=== PATIENT | female | born 1950 | race Caucasian/White ===

== ENCOUNTER 2021-10-29 07:30 | Day surgery (SDC) | payer OTHER ==
[2021-10-24 11:16] LABS: SARS-CoV-2 Antigen Rapid Res Negative (Negative)
[2021-10-29] MEDS ORDERED: Ringers Lactate 1,000 ML IV ONE (07:53)
[2021-10-29] MEDS ORDERED: LIDOCAINE 1% W/EPI 1:100,000 MDV 50 ML VIAL ONE (08:03)
[2021-10-29] MEDS ORDERED: SCOPOLAMINE HYDROBROMIDE PATCH TD ONE (08:10)
[2021-10-29] MEDS ORDERED: propofoL 200 MG/20 ML VIAL IV ONE (08:11)
[2021-10-29] MEDS ORDERED: LIDOCAINE 2% MPF 5 ML VIAL ONE (08:12)
[2021-10-29] MEDS ORDERED: MIDAZOLAM HCL 2 MG/2 ML INJ ONE (08:12)
[2021-10-29] MEDS ORDERED: dexAMETHasone 10 MG/ML VIAL ONE (08:12)
[2021-10-29] MEDS ORDERED: ROCURONIUM 50 MG/5 ML VIAL IV ONE (08:12)
[2021-10-29] MEDS ORDERED: FENTANYL CITR 100 MCG/2 ML ONE (08:12)
[2021-10-29] MEDS ORDERED: ONDANSETRON 4 MG/2 ML VIAL ONE (08:14)
[2021-10-29] MEDS: CEFAZOLIN 2 GM IN 0.9% NACL 2 GM/100 ML BAG ONE ×2 (08:20→09:09)
[2021-10-29] MEDS: BUPIVACAINE 0.25% PF 10 ML VIAL ONE ×2 (09:17→09:27)
[2021-10-29] MEDS ORDERED: EPHEDRINE SULF 50 MG/ML VIAL ONE (09:18)
--- NOTE | 2021-10-29 10:15 | RAD REPORT ---
EXAM DESCRIPTION: RAD - Fluoroscopy <1 Hour - 10/29/2021 10:07 am FINDINGS: Sacral neural modulation procedure was performed. Fluoro time was 0.71 minutes. Images were reviewed and showed placement of the stimulator wire. No unexpected finding. Due to technical issues, the 2 portable C-arm views could not be scanned into the PACs system.
[2021-10-29] MEDS ORDERED: KETOROLAC 30 MG/ML INJ ONE (10:16)
[2021-10-29] MEDS ORDERED: PROMETHAZINE INJ 25 MG/ML AMP IV PRN (10:40)
[2021-10-29] MEDS ORDERED: HYDROCODONE/APAP 5/325 MG TAB PO PRN (10:40)
--- NOTE | 2021-10-29 10:45 | P.BOP ---
Preoperative diagnosis: refractory OAB Postoperative diagnosis: same, Primary procedure: Interstim Stage 1 Business Planning Analyst: NONE,NONE (rt buttock suspected shingles) Estimated blood loss: min Specimen: none Findings: optimal position, all leads responsive, L lat sacral margin,same side exit Anesthesia: General Complications: None (GETA) Implants: lead wire Interstim quadripolar tined lead Transferred to: Recovery Room Condition: Good
[2021-10-29 11:54] VITALS: BP 143/74; TEMP 96.7; O2SAT 99
[2021-10-29] MEDS ORDERED: MELATONIN 3 MG TABLET PO SCH (21:00)
[2021-10-29] MEDS ORDERED: ATORVASTATIN 40 MG TAB PO SCH (21:00)
[2021-10-30] MEDS ORDERED: LEVOTHYROXINE SOD 0.125 MG TAB PO SCH (06:00)
[2021-10-30] MEDS ORDERED: MAGNESIUM OXIDE 200 MG PO SCH (08:00)
[2021-10-30] MEDS ORDERED: HOME MED 1 EA UNK (Cartilage/Collagen/Bor/Hyalur [Joint Health Tablet] Tablet) PO SCH (09:00)
[2021-10-30] MEDS ORDERED: HOME MED 1 EA UNK (L.Acidoph,Paracasei, B.Lactis [Probiotic] Capsule) PO SCH (09:00)
[2021-10-30] MEDS ORDERED: SERTRALINE HCL 100 MG TAB PO SCH (09:00)
[2021-10-30] MEDS ORDERED: HOME MED 1 EA UNK (Multivitamin [Multivitamin] Tablet) PO SCH (09:00)
[2021-10-30] MEDS ORDERED: VITAMIN D 5,000 UNIT CAP PO SCH (09:00)
--- NOTE | 2021-10-30 14:52 | OP ---
Date of Procedure: 10/29/2021 Surgeon: Lakia Sol MD Tax Compliance Officer: None. Preoperative Diagnosis: Refractory overactive bladder. Postoperative Diagnosis: Refractory overactive bladder. Procedure Performed: InterStim stage I with fluoroscopic guidance of quadripolar lead placement and attachment to the external battery. Secondary Diagnosis: Right buttock suspected shingles. Specimens: No specimens. Complications: No complications. Drains: No drains. Anesthesia: General endotracheal. Implants: Lead 1 InterStim quadripolar tined lead placement and creation of pocket on the left buttock itself for future battery. Findings: Optimal position of lead by placement on fluoroscopy on the AP and lateral views. All leads were responsive. Left lateral sacral margin was used for lead insertion at S3. On the right buttock, there was an area of a rash suspicious for shingles. However, patient denies any prior history of shingles or any symptoms of inner pain or itching or irritation at this site. It was covered with tegaderm after prep in it's own area separate from the prep on of the procedure site. Indications: Patient is a 71-year-old female with refractory overactive bladder. She has been treated with first and second line therapy and has failed to respond. Second-line treatment with mirabegron was not effective and she did not tolerate the anticholinergic. We discussed about the benefits and risks of Botox injection as well as the InterStim therapy. The patient wanted to proceed with InterStim therapy as the long-term solution and that she has no voiding dysfunction. She may also have some MEG for which she will be treated later, so after discussing all the events stage I and stage II were discussed with the patient, she consented for stage I and she has a 1-week followup. Voiding log was done before preop then and 1 will be done postop to see the efficacy before the long- term battery is implanted. Description Of Procedure: After informed consent was verified, she was taken back to the OR. 2 g of Ancef was given. SCDs were placed. General endotracheal anesthesia was given. She was placed in a prone position exposing the buttocks as well as the feet to visualize the response to stim. She was propped up on a pillow in the pelvic area and then legs propped up as well to leave the toes free. After prepping and draping and covering the area of the rash, Ioban was placed. A dressing was placed on the top. Then, 9 cm was measured up from the coccyx in the midline. A hemostat was placed in the midline and 2 cm lateral to the midline and the moscoso were made and this would be probably the S3 foramen, so 2 moscoso were made 2 cm above this and 2 cm further above spine in the lateral sacral margin. With the help of hemostat under fluoro, the S3 foramen was identified and the tip was marked. Then, 2 cm above this, initial needle with guide was used and found S3 foramen and placed the needle into the foramen. This was confirmed in AP and lateral views. However, the angle of the needle was not perpendicular to the spine and was slightly flatter and on stimulation, there was not significant dorsiflexion of the toe. So, the second needle was taken and it was placed in a parallel fashion slightly medial to the previous lead and passed to the S3 foramen. Once this was done and confirmed with fluoro, tested this and there were good natividad on all 4 tined leads both natividad and dorsiflexion. So, there was a good S3 response. The initial needle was removed. This was confirmed to be past the bony plate. So, the inner guide was removed. Then, the flexible guide was passed through the needle. The needle was removed and the plastic dilator and sheath were passed on top after making the incision at this level slightly larger with an 11 blade. Then, once the dilator was passed with a marker under fluoro just past half the way to the bony table, the tip of the plastic dilator was slightly below the level of the anterior border here. Once the inner sheath was removed, there was blood through the outer sheath. So, the inner sheath was fixed back in place while the guide was still in place and then the entire thing was pulled back slightly away from the bleeding vessel and the plastic obturator was left in place and once I waited at least 30-60 seconds. The bleeding had stopped and once the 90 degree turn was done, the inner sheath was pulled out. The lead wire was also removed. The tined lead was taken and with the tip angled towards the feet in the right lateral position, this was extended, however, it was not turning the right direction, so went on to adjust the direction and place it. Once there was excellent position, the fourth lizz just touching the anterior margin of the sacrum. Then, this was tested. All 4 leads had good response of natividad and toes. Then, the inner guidewire was removed along with the tined lead that was released from the distal clip. The entire system along with the sheath were pulled out after the lead was stabilized. AP and lateral views were taken again and it was still in place and after pulling the plastic sheath out, this was left in place and the incision was placed on the same side, 2 cm inferior to the iliac crest slightly medial. 1 inch incision was made on the skin after injecting lidocaine and the plastic sheath with a dilator was passed from the midline incision into the outer incision and the pin was removed and the lead wire was passed through the plastic sheath. Once this came out from the other end, the plastic sheath was pulled out, which is like a tunnel. Then, the lead wire was made sure that there was no knuckle and was flat enough and once this was done, then made another tunnel from the battery side to the right buttock slightly above the level of the battery placement and the wire placement and at least 1 cm incision was made. This was pulled out through here. This tunneler was loaded with the capsule that would fit the lead wire with the support of the lead and once this was fixed in place and was pulled out through the battery incision, it was released from the tunneler and then the lead wire was placed all the way until all the [address] and the hex wrench was used to do a quick turns to tighten it appropriately. Then, a knuckle of the wire was tied with silk to prevent it from being pulled and this was buried into the pocket made for the future battery at least 3/4 inch deep from the skin and the wire was coiled and left in place. Then, 3-0 chromic was used in the subcutaneous area to close this layer deep inside with single interrupted stitch and then 4-0 Monocryl in a subcuticular fashion to close this incision. Then, same 4 interrupted 4-0 Monocryl for other incisions as well. Dermabond was used. Ioban dressing was removed. Patient recovered from anesthesia. EBL was minimal. She was taken to the PACU in stable condition. She will be programmed later when she is more awake and the settings will be entered into the office record. MONY Voice ID: [id number] Report ID: [id number]
== END 2021-10-29 11:45 | disposition home or self-care (01) ==
LOC: OR 07:30
PROVIDERS: ATTEND Obstetrics & Gynecology
PROC: 0JH70BZ Insertion of Single Array Stimulator Generator into Back Subcutaneous Tissue and Fascia, Open Approach (ICD-10-PCS; principal; 2021-10-29 08:30)
DX: N39.3 Stress incontinence (female) (male) (principal); N32.81 Overactive bladder; E03.9 Hypothyroidism, unspecified; Z20.822 Contact with and (suspected) exposure to COVID-19
CPT/HCPCS: 64590; 64581; 36415; 87811; J2704; J2001; J2250; J3010; J1100; J0690; J7120; J2405; 76000

== ENCOUNTER 2021-11-05 08:28 | Day surgery (SDC) | payer OTHER ==
[~2021-11-05 08:28] MED LIST: CEFAZOLIN 2 GM in NA CHLORIDE 0.9% 100 ML IVPB SCH; Ringers Lactate 1,000 ML IV SCH
[2021-11-05] MEDS ORDERED: CEFAZOLIN 2 GM IN 0.9% NACL 2 GM/100 ML BAG ONE (08:32)
[2021-11-05] MEDS ORDERED: Ringers Lactate 1,000 ML IV ONE (08:32)
[2021-11-05 09:08] LABS: SARS-CoV-2 Antigen Rapid Res Negative (Negative)
[2021-11-05] MEDS ORDERED: LIDOCAINE 1% W/EPI 1:100,000 10 ML VIAL ONE (10:36)
[2021-11-05] MEDS ORDERED: propofoL 200 MG/20 ML VIAL IV ONE ×5 (10:41→12:03)
[2021-11-05] MEDS ORDERED: MIDAZOLAM HCL 2 MG/2 ML INJ ONE (10:42)
[2021-11-05] MEDS ORDERED: FENTANYL CITR 100 MCG/2 ML ONE (10:42)
[2021-11-05] MEDS ORDERED: LIDOCAINE 2% MPF 5 ML VIAL ONE (10:44)
[2021-11-05] MEDS ORDERED: IBUPROFEN 200 MG TAB PO PRN (12:17)
[2021-11-05] MEDS ORDERED: PROMETHAZINE INJ 25 MG/ML AMP IV PRN (12:17)
--- NOTE | 2021-11-05 12:22 | P.BOP ---
Preoperative diagnosis: refractory OAB, MEG (s/p sling) Postoperative diagnosis: same Primary procedure: stage 2 Interstim, Cystoscopy urethral bulking with 1.5ml Bulkamid Estimated blood loss: min Specimen: none Findings: impedence chk passed,lead under the battery:L buttock, 2 layer closure Anesthesia: MAC Complications: None Implants: Battery 10yr non rechargeable Transferred to: Recovery Room Condition: Good
[2021-11-05 12:38] VITALS: O2SAT 100
[2021-11-05 13:57] VITALS: BP 155/81; TEMP 97.7
[2021-11-05] MEDS ORDERED: ATORVASTATIN 40 MG TAB PO SCH (21:00)
[2021-11-05] MEDS ORDERED: MELATONIN 3 MG TABLET PO SCH (21:00)
[2021-11-06] MEDS ORDERED: LEVOTHYROXINE SOD 0.125 MG TAB PO SCH (06:00)
[2021-11-06] MEDS ORDERED: MAGNESIUM OXIDE 200 MG PO SCH (08:00)
[2021-11-06] MEDS ORDERED: HOME MED 1 EA UNK (L.Acidoph,Paracasei, B.Lactis [Probiotic] Capsule) PO SCH (09:00)
[2021-11-06] MEDS ORDERED: HOME MED 1 EA UNK (Multivitamin [Multivitamin] Tablet) PO SCH (09:00)
[2021-11-06] MEDS ORDERED: SERTRALINE HCL 100 MG TAB PO SCH (09:00)
[2021-11-06] MEDS ORDERED: HOME MED 1 EA UNK (Cartilage/Collagen/Bor/Hyalur [Joint Health Tablet] Tablet) PO SCH (09:00)
[2021-11-06] MEDS ORDERED: VITAMIN D 5,000 UNIT CAP PO SCH (09:00)
--- NOTE | 2021-11-06 18:10 | OP ---
Date of Procedure: 11/05/2021 Surgeon: Lakia Sol MD Quality Assurance Specialist: No child and youth program assistant. Preoperative Diagnoses: Refractory overactive bladder; stress urinary incontinence, which is recurre nt after the sling that was done 10 years ago. Postoperative Diagnoses: Refractory overactive bladder; stress urinary incontinence, which is recurr ent after the sling that was done 10 years ago. Procedures Performed: 1.Stage II InterStim (removal of the temporary battery connections, implantation of the permanent ba ttery that is nonrechargeable, programming of the device). 2.Cystoscopy with urethral bulking using 1.5 mL of Bulkamid. Anesthesia: MAC. Condition: Stable. Complications/drains: No complications or drains. Implants: Battery that is a nonrechargeable InterStim untapttronic battery. Findings: Impedance check was done and passed. The lead was coiled under the battery and placed in the left buttock. A two-layer closure was done to avoid the battery displacement. The depth of plac ement was about just over 0.5 inch. Description Of Procedure: After informed consent was verified, patient was taken back to the OR. Cee vega had an excellent response for her stage I. She was on program 1 with an amplitude of 1.1. She was taken back to the OR, placed in supine fashion on the operating table. MAC was given after a face mask was placed. She was then put in a prone position on the operating table, exposing the but tocks and the previous incisions. The external lead wire was hung down out of the field and then Chl oraPrep was used to prep the patient on the back widely. Once this was done, skin glue was removed o angel the battery incision in the left buttock. Then, it was infiltrated with 1% lidocaine with epi 10 cc. I made an incision, opened up the 2 layers carefully. The temporary connection was pulled out. The lead wire was carefully unscrewed with a hex wrench. The external lead wire cut at the level o f the battery incision and pulled out through the other end. The rest pulled out through the other. Then, the battery pocket was already created in the last surgery, so this was just cleared up again o n the top and the bottom just to fit the size of the battery. The nonrechargeable battery was taken and the lead wire inserted until all the [address] leads [address] the way down and then hex wrench x3. The l ead wire was coiled under the battery and the battery was inserted in the pocket. There was closure at 2 levels, 4-0 Monocryl was used to close in an interrupted fashion. Subcutaneous tissues and then subcuticular closure with same suture in a continuous running fashion. Then, bandages were placed o angel the battery incision as well as the previous one where the temporary connection wire came out thr ough, this was also bandaged. Patient was carefully turned on to her back and then repositioned back on operating room table in a s upine fashion. Then, protecting her airway, she was positioned in dorsal lithotomy position. Vulva, vagina, and perineum were prepped and draped in a sterile fashion and using a 17-Welsh sheath , 30-degree lens, normal saline, cystourethroscopy was performed. No evidence of any abnormalities i ncluding tumors or diverticula, or stones. In the base of the bladder, trigone dome and lateral wall s were thoroughly examined and scope was pulled out. There was no evidence of any foreign body like mesh. The pediatric cystoscope was then taken. The sheath for Bulkamid was attached. The outflow was cut out and the inflow was left open to the point that there was a robust dribble. The Bulkamid needle w as attached to a syringe, which was inserted through the sheath to the tip of the sheath. The tip of the sheath was placed at the internal meatus. Needle was extended 2 cm to the dave and then pulled back 2 cm into the mid urethra. Here, the injections were performed at 5 o'clock, at 2 o'clock, 11 a nd 7 o'clock. Whole 1 cc syringe was used in this area. The left half of the 11 and 7 o'clock posit ions did not seem to have an adequate effect to coaptate the mucosa, so another syringe was opened up and attached and I placed another 2.5 cc of Bulkamid at 10 o'clock and at 8 o'clock positions. This had a good affect bringing together the lumen. Scope was then removed carefully. A 12-Welsh Casas was used to catheterize the patient. She was recovered from anesthesia and taken to the PACU in sta ble condition. EBL was minimal. She tolerated the procedure well. Instrument, needle, and sponge c ounts were correct before she was recovered. She will be discharged home after a voiding trial. SK/MODL Voice ID: [id number] Report ID: [id number]
== END 2021-11-05 13:30 | disposition home or self-care (01) ==
LOC: OR 08:28
PROVIDERS: ATTEND Obstetrics & Gynecology
PROC: 0JH70BZ Insertion of Single Array Stimulator Generator into Back Subcutaneous Tissue and Fascia, Open Approach (ICD-10-PCS; principal; 2021-11-05 10:00)
PROC: 0TVD8ZZ Restriction of Urethra, Via Natural or Artificial Opening Endoscopic (ICD-10-PCS; 2021-11-05 10:00)
DX: N39.3 Stress incontinence (female) (male) (principal); N32.81 Overactive bladder; E03.9 Hypothyroidism, unspecified; Z20.822 Contact with and (suspected) exposure to COVID-19
CPT/HCPCS: 36415; 87811; 64590; 51715; J2704 ×5; J2001; J2250; J0690; J7120; L8606; J3010

== ENCOUNTER → 2022-05-14 | Day surgery (SDC) | payer OTHER, BC ==
--- NOTE | 2022-05-14 14:17 | RAD REPORT ---
EXAM DESCRIPTION: US - Breast Aspiration Inital - 05/14/2022 2:07 pm CLINICAL HISTORY: ICD R92,8 COMPARISON: April 2022 TECHNIQUE The risks, benefits and alternatives to the procedure explained to the patient. Informed c onsent obtained. Skin, subcutaneous and breast tissues anesthetized with lidocaine. Under sonographic guidance, an 18 gauge needle placed into the hypoechoic mass upper retroareolar reg ion right breast. Approximately 3 cc of brownish fluid was aspirated and given to pathology. Post aspiration images demonstrate that the cystic mass has collapsed with little fluid remaining The patient experienced no immediate complication IMPRESSION: Cyst aspiration right breast
== END ==
LOC: DS 08:00
PROVIDERS: ATTEND Clinical Nurse Specialist Women's Health
DX: N60.01 Solitary cyst of right breast (principal)
CPT/HCPCS: 19000; 19083; 88161

== ENCOUNTER → 2022-12-17 | Day surgery (SDC) | payer OTHER, BC ==
--- NOTE | 2022-12-17 13:28 | RAD REPORT ---
EXAM DESCRIPTION: Ultrasound-guided right breast core biopsy CLINICAL HISTORY: N63.10 COMPARISON: BREAST/AXILLA, COMPLETE dated 11/21/2022; Breast Aspiration Inital dated 05/14/2022 FINDINGS: The risks and benefits were discussed with the patient. Informed consent was obtained and time-out was performed. The patient had underwent aspiration of the same lesion recently on 3. The patient's right breast was prepped and draped in the usual sterile fashion. 1% lidocaine was used for local anesthetic purposes. Utilizing aseptic technique and under real-time ultrasound guidance, an 18 gauge aspiration needle wa s inserted into the mass at 12 o'clock position which today measured up to 9 millimeter in greatest d imension. Small amount of brown fluid was obtained, less than 1 mL, and sent for cytology. Subsequent scanning demonstrated transient decrease in size of the mass. Subsequently, and again under real-janes e ultrasound guidance, a 17 gauge introducer was placed along the periphery of the lesion, and 3 X 18 gauge core biopsies were obtained including the wall of the lesion. All collected material was sent to pathology for further analysis. Patient tolerated procedure well. IMPRESSION: Successful ultrasound guided aspiration and core biopsies of a right breast mass.
== END ==
LOC: DS 08:00
PROVIDERS: ATTEND Surgery
DX: N63.10 Unspecified lump in the right breast, unspecified quadrant (principal)
CPT/HCPCS: 19083; 88305

== ENCOUNTER 2023-11-20 07:28 | Day surgery (SDC) | payer OTHER, BC ==
[2023-11-19 12:26] LABS: Absolute Basophils 0.1 K/uL (0-0.5); Absolute Eosinophils 0.2 K/uL (0-0.5); Absolute Lymphocytes (CBC) 1.8 K/uL (0.7-4.9); Absolute Monocytes 0.4 K/uL (0.1-1.3); Absolute Neutrophil 3.7 K/uL (1.8-8.0); Basophils % 0.9 % (0-1.3); Eosinophils % 2.5 % (0-4.4); Hematocrit 38.4 % (36.0-45.0); Lymphocytes % 29.6 % (15.3-44.8); MCH 30.8 pg (27.0-35.0); MCHC 33.8 g/dL (32.0-36.0); MCV 91.1 fL (80-100); MPV 8.1 fL (7.6-11.3); Monocytes % 6.3 % (3.3-12.3); Neutrophils % 60.7 % (41.7-73.7); Platelets 271 thou/uL (152-406); RBC Red Blood Cell Count 4.21 M/uL (3.86-4.86); Red Cell Distribution Width 12.3 % (12.1-15.2)
[2023-11-19 13:10] LABS: Anion Gap 6.2 mEq/L (5.0-15.0); Potassium 4.2 mEq/L (3.5-5.1)
--- NOTE | 2023-11-19 16:50 | EKG ---
Test Date: 2023-11-19 Test Time: 12:29:51 Spray Drier Operator: ANTOINETTE MEASUREMENT RESULTS: Intervals: Rate: 60 RI: 152 QRSD: 84 QT: 420 QTc: 420 [place]: P: 60 RI: 152 QRS: 51 T: 62 INTERPRETIVE STATEMENTS: Normal sinus rhythm Normal ECG Compared to ECG 08/04/2007 08:55:33 No significant changes Electronically Signed On 11-19-23 16:49:49 CDT by Ghassan Villagran
[2023-11-20] MEDS: Ringers Lactate 1,000 ML IV ONE (07:45)
[2023-11-20] MEDS ORDERED: propofoL 200 MG/20 ML VIAL IV ONE ×3 (08:30→08:54)
[2023-11-20] MEDS ORDERED: LIDOCAINE 1% MPF 5 ML VIAL ONE (08:31)
[2023-11-20 10:55] VITALS: BP 185/54; TEMP 97.2; O2SAT 97
== END 2023-11-20 10:18 | disposition home or self-care (01) ==
LOC: OR 07:28
PROVIDERS: ATTEND Surgery
PROC: 0DJD8ZZ Inspection of Lower Intestinal Tract, Via Natural or Artificial Opening Endoscopic (ICD-10-PCS; principal; 2023-11-20 08:45)
DX: Z12.11 Encounter for screening for malignant neoplasm of colon (principal); K57.30 Diverticulosis of large intestine without perforation or abscess without bleeding; K64.8 Other hemorrhoids
CPT/HCPCS: 93005; 85025; 80048; 36415; J2704 ×2; J2001; J7120; G0121